=== PATIENT | male | born 1960 | race Caucasian/White ===

== ENCOUNTER 2018-05-15 17:01 | Emergency (ER) | payer OTHER ==
[~2018-05-15] VITALS: Ht 180.3 cm; Wt 95.3 kg
== END 2018-05-15 20:26 | disposition home or self-care (01) ==
LOC: ER 17:01
DX: B34.9 Viral infection, unspecified (principal); J11.1 Influenza due to unidentified influenza virus with other respiratory manifestations

== ENCOUNTER 2022-08-11 14:32 | Outpatient (CLI) | payer OTHER | END 2022-08-11 14:40 | disposition home or self-care (01) | LOC: RAD 14:32 | PROVIDERS: ATTEND Physical Medicine & Rehabilitation | DX: M54.59 Other low back pain (principal) ==